=== PATIENT | female | born 1955 | race Caucasian/White ===

== ENCOUNTER → 2019-06-06 | Outpatient (CLI) | payer OTHER ==
--- NOTE | 2019-06-07 13:50 | MM ---
Reason for exam: screening (asymptomatic). Last mammogram was performed 2 years ago. History: Patient is postmenopausal. Family history of breast cancer in sister at age 64. Took hormonal contraceptives for 3 years beginning at age 21. Physical Findings: A clinical breast exam by your physician is recommended on an annual basis and results should be correlated with mammographic findings. MG Screening Mammo w CAD Bilateral CC, MLO, and XCCL view(s) were taken. Prior study comparison: June 02, 2017, bilateral MG screening mammo w CAD. October 19, 2015, right breast MG diagnostic mammo RT w CAD. There are scattered fibroglandular densities. No suspicious abnormality. No significant changes when compared with prior studies. ASSESSMENT: Negative, BI-RAD 1 RECOMMENDATION: Routine screening mammogram of both breasts in 1 year.
== END | disposition home or self-care (01) ==
LOC: RADMAMWWP 11:07
PROVIDERS: ATTEND Family Medicine
DX: Z12.31 Encounter for screening mammogram for malignant neoplasm of breast (principal)
CPT/HCPCS: 77067

== ENCOUNTER 2019-08-27 09:10 | Emergency (ER) | payer OTHER ==
[2019-08-27 09:22] VITALS: RESP 18
--- NOTE | 2019-08-27 09:52 | ED ---
Fall HPI - General Chief Complaint: Fall Stated Complaint: Fall-[facility] Time Seen by Provider: 08/27/19 09:29 Source: patient, RN notes reviewed Mode of arrival: ambulatory Limitations: no limitations - History of Present Illness Initial Comments: This a 63-year-old female presents emergency Department chief complaint of right wrist injury. Patient states she was at work states that she tripped over her foot falling forward into the wall. Patient states that she injured her right wrist she is right-hand dominant no prior fractures. Denies any other s ignificant injury. She states her is moderate pain, swelling no bruising at this time. Denies any paresthesias. - Related Data Allergies Allergy/AdvReac Type Severity Reaction Status Date / Time cefaclor [From [facility]] Allergy Anaphylaxis Verified 08/27/19 09:49 Review of Systems ROS Statement: Those systems with pertinent positive or pertinent negative responses have been documented in the HPI. ROS Other: All systems not noted in ROS Statement are negative. Past Medical History Past Medical History: No Reported History History of Any Multi-Drug Resistant Organisms: None Reported Past Surgical History: Hysterectomy Additional Past Surgical History / Comment(s): eye Past Psychological History: No Psychological Hx Reported Smoking Status: Never smoker Past Alcohol Use History: Rare Past Drug Use History: None Reported General Exam Limitations: no limitations General appearance: alert, in no apparent distress Head exam: Present: atraumatic, normocephalic, normal inspection Neck exam: Present: normal inspection, full ROM. Absent: tenderness, meningismus, lymphadenopathy Respiratory exam: Present: normal lung sounds bilaterally. Absent: respiratory distress, wheezes, rales, rhonchi, stridor Cardiovascular Exam: Present: regular rate, normal rhythm, normal heart sounds. Absent: systolic murmur, diastolic murmur, rubs, gallop, clicks Extremities exam: Present: other (Right wrist there is moderate swelling noted, no snuffbox tenderness, neurovascular intact normal capillary refill, no digit tenderness in the right proximal forearm tenderness) Neurological exam: Present: alert, oriented X3, CN II-XII intact Skin exam: Present: warm, dry, intact, normal color. Absent: rash Course Vital Signs 08/27/19 09:19 Temperature 98.5 F Pulse Rate 74 Respiratory 18 Rate Blood Pressure 139/80 O2 Sat by Pulse 97 Oximetry Procedures - Orthopedic Splinting/Casting Injury #1 Side: right Upper Extremity Injury Location: short arm, wrist Upper Extremity Immobilizer: volar splint, synthetic pre-padded splint Medical Decision Making - Medical Decision Making 63-year-old presented for right wrist injury x-ray shows irregularity concerning for possible acute fracture. Patient was splinted and will follow-up with orthopedics. Disposition Clinical Impression: Fall, Distal radius fracture, right Disposition: HOME SELF-CARE Condition: Stable Instructions (If sedation given, give patient instructions): Wrist Fracture in Adults (ED) Additional Instructions: Please return to the Emergency Department if symptoms worsen or any other concerns. Is patient prescribed a controlled substance at d/c from ED?: No Referrals: Michoacano Larios DO [Primary Care Provider] - 1-2 days Elías Witt MD [STAFF PHYSICIAN] - 1-2 days Time of Disposition: 10:48
--- NOTE | 2019-08-27 10:16 | XR ---
EXAMINATION TYPE: XR wrist complete RT DATE OF EXAM: 08/27/2019 COMPARISON: NONE HISTORY: 63-year-old female fall and pain TECHNIQUE: 4 views FINDINGS: Severe degenerative change first CMC joint with joint space narrowing, subchondral sclerosi s, and marginal spurring. Some osteopenia is present with generalized soft tissue swelling. Some irregularity to the distal radial epiphysis on the lateral view. No well-defined fracture lucenc y is seen. IMPRESSION: 1. Some irregularity to the distal radial epiphysis on the lateral view without any well-defined frac ture lucency seen. Consider follow up in 10-14 days if there is clinical suspicion of an underlying o ccult osseous injury. 2. Generalized soft tissue swelling at the wrist. 3. 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
[2019-08-27 11:27] VITALS: BP 133/85; PULSE 72; TEMP 98
== END 2019-08-27 11:25 | disposition home or self-care (01) ==
LOC: EC 09:10
DX: S52.591A Other fractures of lower end of right radius, initial encounter for closed fracture (principal); Z88.1 Allergy status to other antibiotic agents; W01.198A Fall on same level from slipping, tripping and stumbling with subsequent striking against other object, initial encounter; Y93.89 Activity, other specified; Y92.69 Other specified industrial and construction area as the place of occurrence of the external cause; Y99.0 Civilian activity done for income or pay
CPT/HCPCS: 29125; 99283

== ENCOUNTER → 2020-03-02 | Outpatient (CLI) | payer BC ==
--- NOTE | 2020-03-02 17:10 | BD ---
EXAMINATION TYPE: Axial Bone Density DATE OF EXAM: 03/02/2020 COMPARISON: NONE CLINICAL HISTORY: Height: 67 Weight: 239.4 FRAX RISK QUESTIONS: Alcohol (3 or more units per day): no Family History (Parent hip fracture): yes mother Glucocorticoids (More than 3mos): no (Ex: prednisone, prednisolone, methylprednisolone, dexamethasone, and hydrocortisone). History of Fracture in Adulthood: yes Secondary Osteoporosis: 1. Type 1 Diabetes: no 2. Hyperthyroidism: no 3. Menopause before 45: yes 4. Malnutrition: no 5. Chronic liver disease: no Rheumatoid Arthritis: no Current Tobacco Use: no RISK FACTORS HISTORY OF: History of Wrist Fracture: right When: age 64 Family History of Osteoporosis: no Active: no Diet low in dairy products/other sources of calcium: no Postmenopausal woman: age 43 hysterectomy Lost more than 2 inches in height since high school: no MEDICATIONS: prevastatin, atenolol, nifedipine, triamterene Thyroid Medications: synthroid How Long: since 1997 Additional History: EXAM MEASUREMENTS: Bone mineral densitometry was performed using the [employer] System. Bone mineral density as measured about the Lumbar spine is: ----- L1-L4(G/cm2): 1.194 T Score Values are as follows: ----- L2: -0.5 ----- L3: 0.4 ----- L4: 1.0 ----- L1-L4: 0.1 Bone mineral density : baseline Bone mineral density about the R hip (g/cm2): 1.037 Bone mineral density about the L hip (g/cm2): 0.921 T Score values are as follows: -----R Neck: 0.0 -----L Neck: -0.8 -----R Total: -0.2 -----L Total: -0.7 Bone mineral density : baseline IMPRESSION: Normal (Values between +1 and -1 indicate normal bone mass). Consider repeating this study in 5 year s or sooner if there is some new clinical indication. NOTE: T-SCORE=SD OF THE YOUNG ADULT MEAN.
== END | disposition home or self-care (01) ==
LOC: RADBDWWP 07:06
PROVIDERS: ATTEND Family Medicine
DX: N95.1 Menopausal and female climacteric states (principal)
CPT/HCPCS: 77080

== ENCOUNTER → 2021-11-30 | Outpatient (CLI) | payer BC ==
--- NOTE | 2021-12-01 18:40 | MM ---
Reason for Exam: Screening (asymptomatic). Last mammogram was performed 2 year(s) and 5 month(s) ago. Patient History: Menarche at age 12. First Full-Term at age 24. Right ovary removed at age 42. Hysterectomy at age 42. Postmenopausal. Patient has history of breast feeding. Hormonal Contraceptives for 3 years from age 21 until age 28. Sister had breast cancer, age 64. Risk Values: Elicia 5 year model risk: 3.4%. NCI Lifetime model risk: 13.2%. Prior Study Comparison: 10/19/2015 Right Diagnostic Mammogram, [facility]. 06/02/2017 Bilateral Screening Mammogram, [facility]. 06/06/2019 Bilateral Screening Mammogram, [facility]. Tissue Density: There are scattered fibroglandular densities. Findings: Analyzed By CAD. No suspicious spiculated or lobular masses, clusters of microcalcifications, architectural distortion, or other secondary signs of malignancy are radiographically apparent. Normal marker is utilized on the left breast. Overall Assessment: Benign, BI-RAD 2 Management: Screening Mammogram of both breasts in 1 year. A clinical breast exam by your physician is recommended on an annual basis and results should be correlated with mammographic findings. Electronically signed and approved by: Jack Sweeney D.O. Radiologis
== END | disposition home or self-care (01) ==
LOC: RADMAMWWP 13:35
PROVIDERS: ATTEND Family Medicine
DX: Z12.31 Encounter for screening mammogram for malignant neoplasm of breast (principal); Z78.0 Asymptomatic menopausal state; Z80.3 Family history of malignant neoplasm of breast; Z90.721 Acquired absence of ovaries, unilateral
CPT/HCPCS: 77067

== ENCOUNTER → 2023-03-08 | Outpatient (CLI) | payer BC ==
--- NOTE | 2023-03-09 20:12 | MM ---
Reason for Exam: Screening (asymptomatic). Last mammogram was performed 1 year(s) and 4 month(s) ago. Patient History: Menarche at age 12. First Full-Term at age 24. Right ovary removed at age 42. Hysterectomy at age 42. Postmenopausal. Patient has history of breast feeding. Hormonal Contraceptives for 3 years from age 21 until age 28. Sister had breast cancer, age 64. Risk Values: Elicia 5 year model risk: 3.5%. NCI Lifetime model risk: 12.7%. Prior Study Comparison: 10/19/2015 Right Diagnostic Mammogram, [facility]. 06/02/2017 Bilateral Screening Mammogram, [facility]. 06/06/2019 Bilateral Screening Mammogram, [facility]. 11/30/2021 Bilateral MG screening mammo w CAD, [facility]. Tissue Density: There are scattered fibroglandular densities. Findings: Analyzed By CAD. There is no suspicious group of microcalcifications or new suspicious mass in either breast. Overall Assessment: Negative, BI-RAD 1 Management: Screening Mammogram of both breasts in 1 year. See note below in regards to patient's increased 5 year Elicia score. Patient should continue monthly self-breast exams. A clinical breast exam by your physician is recommended on an annual basis. This exam should not preclude additional follow-up of suspicious palpable abnormalities. Note on Elicia scores and lifetime risk: 1. A Elicia score greater than 3% is considered moderate risk. If this is the case, consider specialist referral to assess eligibility for a risk reducing agent. 2. If overall lifetime risk for the development of breast cancer is 20% or higher, the patient may qualify for future screening with alternating mammogram and breast MRI. Electronically signed and approved by: Kofi Mcintosh M.D. Radiologist
== END | disposition home or self-care (01) ==
LOC: RADMAMWWP 07:52
PROVIDERS: ATTEND Family Medicine
DX: Z12.31 Encounter for screening mammogram for malignant neoplasm of breast (principal); Z78.0 Asymptomatic menopausal state; Z80.3 Family history of malignant neoplasm of breast
CPT/HCPCS: 77063; 77067

== ENCOUNTER → 2024-03-18 | Outpatient (CLI) | payer MEDICARE ==
--- NOTE | 2024-03-19 10:10 | MM ---
Reason for Exam: Screening (asymptomatic). Last screening mammogram was performed 12 month(s) ago. Patient History: Menarche at age 12. First Full-Term at age 24. Right ovary removed at age 42. Hysterectomy at age 42. Postmenopausal. Patient has history of breast feeding. Hormonal Contraceptives for 3 years from age 21 until age 28. Sister had breast cancer, age 64. Risk Values: Elicia 5 year model risk: 3.5%. NCI Lifetime model risk: 12.3%. Prior Study Comparison: 06/06/2019 Bilateral Screening Mammogram, [facility]. 11/30/2021 Bilateral MG screening mammo w CAD, [facility]. 03/08/2023 Bilateral MG 3D screening mammo w/cad, [facility]. Tissue Density: There are scattered areas of fibroglandular density. Findings: Analyzed By CAD. Right breast: There is no suspicious group of microcalcifications or new suspicious mass. Left breast: There is no suspicious group of microcalcifications or new suspicious mass. Overall Assessment: Negative, BI-RAD 1 Management: Screening Mammogram of both breasts in [address] [facility] will attempt to contact patient to return for supplemental views and ultrasound if indicated. Patient should continue monthly self-breast exams. A clinical breast exam by your physician is recommended on an annual basis. This exam should not preclude additional follow-up of suspicious palpable abnormalities. Note on Elicia scores and lifetime risk: 1. A Elicia score greater than 3% is considered moderate risk. If this is the case, consider specialist referral to assess eligibility for a risk reducing agent. 2. If overall lifetime risk for the development of breast cancer is 20% or higher, the patient may qualify for future screening with alternating mammogram and breast MRI. [facility], , 03/19/2024 10:07 AM. Electronically signed and approved by: Willy Mims DO
== END | disposition home or self-care (01) ==
LOC: RADMAMWWP 10:49
PROVIDERS: ATTEND Family Medicine
DX: Z12.31 Encounter for screening mammogram for malignant neoplasm of breast
CPT/HCPCS: 77063; 77067